=== PATIENT | male | born 1995 | race Two or more races ===

== ENCOUNTER 2023-05-24 16:00 | Emergency (ER) | payer SELFPAY ==
[2023-05-24 16:07] VITALS: BP 119/69; PULSE 91; RESP 18; TEMP 98; BMI 28.8
[2023-05-24] MEDS ORDERED: ACETAMINOPHEN 500 MG TABLET (FP) PO ONE (17:31)
[2023-05-24] MEDS ORDERED: DIPHTH,PERTUSS(ACELL),TET 0.5 ML DISP.SYRIN IM ONE ×2 (17:31→18:01)
[2023-05-24] MEDS ORDERED: KETOROLAC TROMETHAMINE 30 MG/1 ML VIAL IM ONE (17:47)
[2023-05-24] MEDS ORDERED: KETOROLAC TROMETHAMINE 30 MG/1 ML VIAL ONE (18:00)
[2023-05-24] MEDS ORDERED: ACETAMINOPHEN 500 MG TABLET (FP) ONE (18:00)
[2023-05-24] MEDS ORDERED: AMOX TR/POT CLAV 875MG/125MG TABLETS (FP) PO ONE (19:28)
[2023-05-24] MEDS ORDERED: AMOX TR/POT CLAV 875MG/125MG TABLETS (FP) ONE (19:33)
== END 2023-05-24 21:03 | disposition left against medical advice (07) ==
LOC: JERFT 16:00
PROC: 3E0233Z Introduction of Anti-inflammatory into Muscle, Percutaneous Approach (ICD-10-PCS; principal; 2023-05-24)
PROC: 3E0234Z Introduction of Serum, Toxoid and Vaccine into Muscle, Percutaneous Approach (ICD-10-PCS; 2023-05-24)
DX: S62.512B Displaced fracture of proximal phalanx of left thumb, initial encounter for open fracture (principal); R22.32 Localized swelling, mass and lump, left upper limb; W20.8XXA Other cause of strike by thrown, projected or falling object, initial encounter; Y92.810 Car as the place of occurrence of the external cause
CPT/HCPCS: 73130-TC-LT-FY; 90715; 99284-25